=== PATIENT | female | born 1995 | race Two or more races ===

== ENCOUNTER 2025-10-11 02:13 | Inpatient (IN) | payer BC ==
[2025-10-11 02:59] VITALS: BMI 32.9
[2025-10-11] MEDS: Acetaminophen 500 MG TAB PO SCH (05:08)
[2025-10-11] MEDS ORDERED: Carboprost 250 MCG/ML AMP IM PRN (08:10)
[2025-10-11] MEDS ORDERED: Methylergonovine 0.2 MG/ML VIAL IM PRN ×2 (08:10→23:44)
[2025-10-11] MEDS ORDERED: HYDROcodone/Acetaminophen 5/325 mg Tablet PO PRN ×2 (08:10)
[2025-10-11] MEDS ORDERED: Diphenoxylate HCl/Atropine Tablet PO PRN ×2 (08:10)
[2025-10-11] MEDS ORDERED: hydrALAZINE 20 MG/ML VIAL SLOW IVP PRN ×2 (08:10→23:44)
[2025-10-11] MEDS ORDERED: Lidocaine 1% (PF) 30 ML VIAL SC PRN (08:10)
[2025-10-11] MEDS ORDERED: Ibuprofen 800 MG TAB PO PRN (08:10)
[2025-10-11] MEDS ORDERED: Tranexamic Acid 1,000 MG/10 ML VIAL IVP PRN (08:10)
[2025-10-11] MEDS ORDERED: Ondansetron PF 4 MG/2 ML Vial IVP PRN ×5 (08:10→23:44)
[2025-10-11] MEDS ORDERED: Oxytocin 30 units/NS 500 ML 500 ML IV SCH ×3 (08:15→23:44)
[2025-10-11 08:23] LABS: Hematocrit 39.1 % (34.9-44.5); Hemoglobin 13.0 g/dL (12.0-15.5); Mean Corpuscular Hemoglobin 25.4 pg (27.0-33.0); Mean Corpuscular Volume 76.4 fL (81.6-98.3); Platelet Count 310 10x3/uL (150-450); Red Blood Cell (RBC) Count 5.12 10x6/uL (3.90-5.03); White Blood Cell (WBC) Count 20.07 10x3/uL (3.5-10.5)
[2025-10-11 09:03] LABS: Syphilis Antibody Index 0.08 S/CO (<1.00 Non-Reactive)
[2025-10-11 09:05] LABS: Hep B Surf Ag - L&D Non-Reactive S/CO (NonReactive)
[2025-10-11] MEDS ORDERED: diphenhydrAMINE 50 MG/ML VIAL IVP PRN ×2 (14:42→20:53)
[2025-10-11] MEDS ORDERED: Acetaminophen 325 MG TAB PO PRN (14:42)
[2025-10-11] MEDS ORDERED: Communication Order-Pharmacy FS SCH ×2 (14:45→21:00)
[2025-10-11] MEDS ORDERED: fentaNYL 2 mcg/Ropivacaine 0.2% Epidural 100 ML CADD EPIDURAL SCH (14:45)
[2025-10-11] MEDS ORDERED: Meperidine HCl/PF 25 MG (1 mL) VIAL SLOW IVP PRN (20:53)
[2025-10-11] MEDS ORDERED: HYDROmorphone 0.5 MG/0.5 ML SYRINGE SLOW IVP PRN (20:53)
[2025-10-11] MEDS: Ketorolac Tromethamine 30 MG (1 mL) VIAL IVP SCH (22:13)
[2025-10-11] MEDS ORDERED: Lanolin Ointment 7 GM TUBE TOP PRN (23:44)
[2025-10-11] MEDS ORDERED: Bisacodyl 10 MG SUPP PR PRN (23:44)
[2025-10-11] MEDS ORDERED: diphenhydrAMINE 25 MG CAP PO PRN (23:44)
[2025-10-11] MEDS: fentaNYL/Ropivacaine Epidural 100 ML ONE (23:48)
[2025-10-11] MEDS: CEFAZOLIN 2 GM VIAL ONE (23:49)
[2025-10-11] MEDS: Dexamethasone 10 MG/ML VIAL ONE (23:49)
[2025-10-11] MEDS: Azithromycin 500 MG VIAL ONE (23:49)
[2025-10-11] MEDS: Lidocaine 2% MPF 10 ML AMP (For Epidural Use) ONE (23:50)
[2025-10-11] MEDS: Oxytocin 10 UNITS/ML VIAL ONE (23:50)
[2025-10-11] MEDS: PHENYLEPHRINE-NS 100 MCG/ML 10 ML SYRINGE ONE (23:50)
[2025-10-12] MEDS: Ferrous Sulfate 325 MG TAB PO SCH ×2 (03:12→08:19)
[2025-10-12 05:10] LABS: Hematocrit 28.1 % (34.9-44.5); Hemoglobin 9.5 g/dL (12.0-15.5); Mean Corpuscular Hemoglobin 25.7 pg (27.0-33.0); Mean Corpuscular Volume 75.9 fL (81.6-98.3); Platelet Count 221 10x3/uL (150-450); Red Blood Cell (RBC) Count 3.70 10x6/uL (3.90-5.03); White Blood Cell (WBC) Count 20.24 10x3/uL (3.5-10.5)
[2025-10-12] MEDS: Ketorolac Tromethamine 30 MG (1 mL) VIAL IVP PRN (05:55)
[2025-10-12] MEDS: HYDROcodone/Acetaminophen 5/325 mg Tablet PO PRN ×2 (14:26→23:03)
[2025-10-12] MEDS: Ibuprofen 800 MG TAB PO SCH (14:26)
[2025-10-12] MEDS ORDERED: Bupivacaine HCl 0.5%/Epinephrine 1:200,000/PF 30 ml Vial ONE (20:12)
[2025-10-12] MEDS ORDERED: Bupivacaine 0.25% HCL 30 ML VIAL ONE (20:12)
[2025-10-13] MEDS: Simethicone Chewable 80 MG TAB PO PRN (15:45)
[2025-10-13 16:35] VITALS: BP 113/72; TEMP 98.3
== END 2025-10-13 17:00 | disposition home or self-care (01) | DRG 788 ==
LOC: CSHLD/OP 02:13 → CSHLD 07:27 → CSHPP 23:04
PROVIDERS: ADMIT Obstetrics & Gynecology; ATTEND Obstetrics & Gynecology
PROC: 10D00Z1 Extraction of Products of Conception, Low, Open Approach (ICD-10-PCS; principal; 2025-10-11)
DX: O62.1 Secondary uterine inertia (principal); O99.284 Endocrine, nutritional and metabolic diseases complicating childbirth; Z37.0 Single live birth; Z3A.39 39 weeks gestation of pregnancy
CPT/HCPCS: 36415; 85027; 86780; 86850; 86900; 86901; 87340; J0665; J1100; J1885; J2274; J2590; J3010